=== PATIENT | male | born 1930 | race Caucasian/White ===

== ENCOUNTER 2018-05-17 17:21 | Emergency (ER) | payer MEDICARE, OTHER ==
[~2018-05-17] VITALS: Ht 172.7 cm; Wt 50.9 kg
[2018-05-17] MEDS ORDERED: albuterol 2.5 MG/3 ML nebule NEB ONE (17:55)
[2018-05-17 18:18] LABS: BASOPHILS % (AUTO) 0.3 % (0-1); EOSINOPHILS # (AUTO) 0.1 X10'3 (0-0.9); EOSINOPHILS % (AUTO) 0.9 % (0-6); HEMATOCRIT 38.3 % (42.0-52.0); HEMOGLOBIN 12.4 g/dl (14.0-17.9); LYMPHOCYTES # (AUTO) 1.4 X10'3 (1.1-4.8); LYMPHOCYTES % (AUTO) 22.7 % (21-51); MEAN CORPUSCULAR HGB CONC 32.5 % (33.0-36.5); MEAN CORPUSCULAR VOLUME 92.2 FL (78-98); MEAN PLATELET VOLUME 9.1 FL (7.4-10.4); MONOCYTES # (AUTO) 0.4 X10'3 (0-0.9); MONOCYTES % (AUTO) 7.1 % (2-12); NEUTROPHILS # (AUTO) 4.3 X10'3 (1.8-7.7); PLATELET COUNT 221 X10'3 (140-440); RED BLOOD COUNT 4.15 X10'6 (4.70-6.10); WHITE BLOOD COUNT 6.2 X10'3 (4.5-11.0)
[2018-05-17] MEDS ORDERED: morphine 4 MG/ML inj SYRINge IV ONE (18:30)
[2018-05-17 18:31] LABS: ALANINE AMINOTRANSFERASE 25 U/L (12-78); ALBUMIN 3.5 G/DL (3.4-5.0); ALBUMIN/GLOBULIN RATIO 1.1 (1.1-1.5); ALKALINE PHOSPHATASE 113 IU/L (46-116); ANION GAP 6 (8-16); ASPARTATE AMINO TRANSFERASE 15 U/L (10-37); BILIRUBIN,TOTAL 0.9 MG/DL (0.1-1.0); BLOOD UREA NITROGEN 17 MG/DL (7-18); BUN/CREATININE RATIO 32.1 (5.4-32.0); CALCIUM 8.5 MG/DL (8.5-10.1); CHLORIDE 102 MMOL/L (99-107); CREATININE 0.53 MG/DL (0.60-1.10); GLUCOSE 449 MG/DL (70-104); POTASSIUM 4.6 MMOL/L (3.5-5.1); SODIUM 138 MMOL/L (135-145); TOTAL CARBON DIOXIDE 30.2 MMOL/L (24-32); TOTAL PROTEIN 6.6 G/DL (6.4-8.2); eGFR > 90 ML/MIN
[2018-05-17 18:34] LABS: INR 1.1 INR; PARTIAL THROMBOPLASTIN TIME 23 SECONDS (22-32); PROTHROMBIN TIME 11.3 SECONDS (9.0-12.0)
[2018-05-17 18:40] LABS: MAGNESIUM 1.9 MG/DL (1.5-2.4)
[2018-05-17] MEDS ORDERED: normal saline 1000ML IV soln IVB ONE (19:00)
[2018-05-17] MEDS ORDERED: insulin regular, human 10 units/0.1 ml syringe SQ ONE (19:15)
[2018-05-17 19:31] LABS: CLARITY,URINE CLEAR (Clear); COLOR,URINE YELLOW (Yellow); GLUCOSE, URINE >=1000 mg/dl (Neg); KETONES,URINE TRACE mg/dl (Neg); LEUKOCYTE ESTERASE ,URINE NEGATIVE (Neg); NITRITES, URINE NEGATIVE (Neg); OCCULT BLOOD,URINE TRACE-INTACT (Neg); PH,URINE 5.5 (4.8-8.0); PROTEIN,URINE NEGATIVE (Neg); UROBILINOGEN,URINE 0.2 E.U/dL (0.2-1.0)
[2018-05-17 19:35] LABS: BACTERIA,URINE NONE SEEN /HPF (Neg); RBC,URINE 0-2 /HPF (0-2); SQUAMOUS EPITHELIAL CELL,UR FEW /LPF (FEW); UA COLLECTION TYPE CLN CATCH MIDSTREAM; WBC,URINE NONE SEEN /HPF (0-4)
[2018-05-17 20:35] VITALS: BP 141/87
== END 2018-05-17 20:37 | disposition home or self-care (01) ==
LOC: ER 17:21
DX: S42.291A Other displaced fracture of upper end of right humerus, initial encounter for closed fracture (principal); E11.65 Type 2 diabetes mellitus with hyperglycemia; E86.0 Dehydration; M54.2 Cervicalgia; I10 Essential (primary) hypertension; J44.9 Chronic obstructive pulmonary disease, unspecified; W18.30XA Fall on same level, unspecified, initial encounter; Y93.89 Activity, other specified; Y92.89 Other specified places as the place of occurrence of the external cause; Y99.8 Other external cause status
CPT/HCPCS: 29105; 36415; 70450; 71045; 72125; 73030; 80053; 81001; 83735; 83880; 84484; 85025; 85610; 85730; 93005; 94640; 94760; 96361; 96372; 96374; 99284; J1815; J2270; J7030

== ENCOUNTER 2018-05-27 13:17 | Outpatient (CLI) | payer MEDICARE, OTHER ==
[2018-05-27 13:13] VITALS: BP 119/65
== END 2018-05-27 14:16 | disposition home or self-care (01) ==
LOC: ORTHO 13:17
PROVIDERS: ATTEND Nurse Practitioner Family
DX: S42.291A Other displaced fracture of upper end of right humerus, initial encounter for closed fracture (principal); E11.9 Type 2 diabetes mellitus without complications; I10 Essential (primary) hypertension; J44.9 Chronic obstructive pulmonary disease, unspecified; F17.200 Nicotine dependence, unspecified, uncomplicated; W18.39XA Other fall on same level, initial encounter; Y93.89 Activity, other specified; Y92.098 Other place in other non-institutional residence as the place of occurrence of the external cause; Y99.8 Other external cause status
CPT/HCPCS: 99213

== ENCOUNTER 2018-06-23 13:51 | Outpatient (CLI) | payer MEDICARE, OTHER ==
[2018-06-23 13:59] VITALS: BP 136/81
== END 2018-06-23 14:38 | disposition home or self-care (01) ==
LOC: ORTHO 13:51
PROVIDERS: ATTEND Nurse Practitioner Family
DX: S42.214 Unspecified nondisplaced fracture of surgical neck of right humerus (principal); L89.010 Pressure ulcer of right elbow, unstageable; I10 Essential (primary) hypertension; E11.9 Type 2 diabetes mellitus without complications; J44.9 Chronic obstructive pulmonary disease, unspecified; F17.210 Nicotine dependence, cigarettes, uncomplicated; Z79.4 Long term (current) use of insulin; Z79.899 Other long term (current) drug therapy; W18.39XD Other fall on same level, subsequent encounter
CPT/HCPCS: 73030; 99213

== ENCOUNTER 2018-06-29 09:22 | Day surgery (SDC) | payer MEDICARE, OTHER ==
[2018-06-29] MEDS ORDERED: LIDOcaine/PRILOcaine 5gm cream TP ONE (09:55)
--- NOTE | 2018-06-29 11:00 | NUR ---
Patient ambulated independently from lobby accompanied by his son Jay and was admitted to outpatient wound care for physician visit with Erik Golden MD. Dressing removed, wound cleansed and Emla cream applied per order. Patient's medical history and current medications are reviewed with patient's son Jay. 1030 - blood glucose 320. Patient instructed that elevated blood sugars delay healing of the wound and can cause further complications including but not limited to amputation of toes or feet. [facility] class flyer given to vidhya Thompson and contacting them for assistance with patient's insulin dosing and blood glucose management is advised by RN. 1010-Dr. Golden at bedside accompanied by RN. Wound assessed, time out performed by MD/RN. Wound debrided as detailed in the physician progress/procedure note. Plan of care discussed with patient. Dressings placed per MD orders. Patient instructed on the signs and symptoms of infection and to call the Wound Center if any occur or to go to the ED if we are closed: Increased pain in wound Increase in drainage from the wound Redness in the skin surrounding the wound Bleeding from the wound Temperature of 101 or greater Patient instructed that the weight of their body puts a large amount of pressure on their wounds. This pressure keeps the new tissue from growing and inhibits new blood vessels from forming. Explained that, if they continue to bear weight on a body part that has a wound, the time it takes to heal the wound increases, the wound may get worse or the wound may not heal at all. Patient;s son Jay verbalized understanding of all discharge instructions and plan of care and patient ambulated independently out to [facility] with Jay and is in stable condition with no sign or symptom of distress at time of discharge.
[2018-06-29] MEDS ORDERED: AMLO5TAB PO (15:53)
[2018-06-29] MEDS ORDERED: HYDR-3195 PO (15:53)
[2018-06-29] MEDS ORDERED: LOSA100T57 PO (15:53)
[2018-06-29] MEDS ORDERED: PRED5TAB PO (15:53)
[2018-06-29] MEDS ORDERED: ACET-1084 (15:53)
[2018-06-29] MEDS ORDERED: MULT-1180 (15:53)
[2018-06-29] MEDS ORDERED: ALBU18HF2 INH (15:53)
[2018-06-29] MEDS ORDERED: ASPI-1265 PO (15:53)
[2018-06-29] MEDS ORDERED: INSU100I31 (15:53)
[2018-06-29] MEDS ORDERED: BUDE10.2 INH (15:53)
== END 2018-06-29 10:50 | disposition home or self-care (01) ==
LOC: WOUND CARE 09:22
PROVIDERS: ATTEND Surgery
DX: E11.622 Type 2 diabetes mellitus with other skin ulcer (principal); L89.894 Pressure ulcer of other site, stage 4; J44.9 Chronic obstructive pulmonary disease, unspecified; I10 Essential (primary) hypertension; F17.210 Nicotine dependence, cigarettes, uncomplicated; Z79.899 Other long term (current) drug therapy; Z79.4 Long term (current) use of insulin
CPT/HCPCS: 36416; 82948; A6021; A6206; A6212

== ENCOUNTER 2018-07-06 09:19 | Day surgery (SDC) | payer MEDICARE, OTHER ==
[~2018-07-06 09:19] MED LIST: ACET-1084; ALBU18HF2 INH; AMLO5TAB PO; ASPI-1265 PO; BUDE10.2 INH; HYDR-3195 PO; INSU100I31; LOSA100T57 PO; MULT-1180; PRED5TAB PO
[2018-07-06] MEDS ORDERED: LIDOcaine 2% 5ml jelly ONE (09:45)
--- NOTE | 2018-07-06 11:00 | NUR ---
Patient ambulated independently from [facility] accompanied by his son and was admitted to outpatient wound care for physician visit with Erik Golden MD. Dressing removed, wound cleansed and lidocaine applied per order. Patient assessed for changes in conditions, medications and medical history. 0951 - blood glucose 277. Patient instructed that elevated blood sugars delay healing of the wound and can cause further complications including but not limited to amputation of toes or feet. 1010 - Dr. Golden at bedside accompanied by RN. Wound assessed, time out performed by MD/RN. Wound debrided as detailed in the physician progress/procedure note. Plan of care discussed with patient. Dressings placed per MD orders. Patient instructed on the signs and symptoms of infection and to call the Wound Center if any occur or to go to the ED if we are closed: Increased pain in wound Increase in drainage from the wound Redness in the skin surrounding the wound Bleeding from the wound Temperature of 101 or greater Patient instructed that the weight of their body puts a large amount of pressure on their wounds. This pressure keeps the new tissue from growing and inhibits new blood vessels from forming. Explained that, if they continue to bear weight on a body part that has a wound, the time it takes to heal the wound increases, the wound may get worse or the wound may not heal at all. Patient and his son verbalized understanding of all discharge instructions and plan of care and patient ambulated independently out to [facility] accompanied by his son and is in stable condition with no sign or symptom of distress at time of discharge.
== END 2018-07-06 10:57 | disposition home or self-care (01) ==
LOC: WOUND CARE 09:19
PROVIDERS: ATTEND Surgery
DX: E11.622 Type 2 diabetes mellitus with other skin ulcer (principal); L89.894 Pressure ulcer of other site, stage 4; J44.9 Chronic obstructive pulmonary disease, unspecified; I10 Essential (primary) hypertension; F17.210 Nicotine dependence, cigarettes, uncomplicated; Z79.899 Other long term (current) drug therapy; Z79.4 Long term (current) use of insulin
CPT/HCPCS: 36416; 82948; 97597; A6209; A6206

== ENCOUNTER 2018-07-13 08:59 | Outpatient (CLI) | payer MEDICARE, OTHER ==
[2018-07-13 08:53] VITALS: BP 125/66
[~2018-07-13 08:59] MED LIST changes: -PRED5TAB PO
== END 2018-07-13 09:26 | disposition home or self-care (01) ==
LOC: ORTHO 08:59
PROVIDERS: ATTEND Nurse Practitioner Family
DX: S42.291G Other displaced fracture of upper end of right humerus, subsequent encounter for fracture with delayed healing (principal); L89.010 Pressure ulcer of right elbow, unstageable; I10 Essential (primary) hypertension; J44.9 Chronic obstructive pulmonary disease, unspecified; E11.9 Type 2 diabetes mellitus without complications; F17.210 Nicotine dependence, cigarettes, uncomplicated; Z79.82 Long term (current) use of aspirin; Z79.4 Long term (current) use of insulin; W18.39XD Other fall on same level, subsequent encounter
CPT/HCPCS: 73030; G0463

== ENCOUNTER 2018-07-13 09:35 | Day surgery (SDC) | payer MEDICARE, OTHER ==
[2018-07-13] MEDS ORDERED: LIDOcaine/PRILOcaine 5gm cream TP ONE (11:00)
--- NOTE | 2018-07-13 12:30 | NUR ---
Patient ambulated independently accompanied by his son from [facility] and was admitted to outpatient wound care for physician visit with Erik Golden MD. Dressing removed, wound cleansed and Emla cream applied per order. Patient assessed for changes in conditions, medications and medical history. 1130 - blood glucose 137. Patient instructed that elevated blood sugars delay healing of the wound and can cause further complications including but not limited to amputation of toes or feet. 1100 - Dr. Golden at bedside accompanied by RN. Wound assessed, time out performed by MD/RN. Wound debrided as detailed in the physician progress/procedure note. Plan of care discussed with patient. Dressings placed per MD orders. Patient instructed on the signs and symptoms of infection and to call the Wound Center if any occur or to go to the ED if we are closed: Increased pain in wound Increase in drainage from the wound Redness in the skin surrounding the wound Bleeding from the wound Temperature of 101 or greater Patient instructed that the weight of their body puts a large amount of pressure on their wounds. This pressure keeps the new tissue from growing and inhibits new blood vessels from forming. Explained that, if they continue to bear weight on a body part that has a wound, the time it takes to heal the wound increases, the wound may get worse or the wound may not heal at all. Patient and his son verbalized understanding of all discharge instructions and plan of care and patient ambulated independently out to [facility] accompanied by his son and is in stable condition with no sign or symptom of distress at time of discharge.
== END 2018-07-13 11:37 | disposition home or self-care (01) ==
LOC: WOUND CARE 09:35
PROVIDERS: ATTEND Surgery
DX: E11.622 Type 2 diabetes mellitus with other skin ulcer (principal); L89.894 Pressure ulcer of other site, stage 4; J44.9 Chronic obstructive pulmonary disease, unspecified; I10 Essential (primary) hypertension; F17.210 Nicotine dependence, cigarettes, uncomplicated; Z79.899 Other long term (current) drug therapy; Z79.4 Long term (current) use of insulin; Z79.82 Long term (current) use of aspirin
CPT/HCPCS: 36416; 82948; A6209; A6222; C5271; Q4102; A6446

== ENCOUNTER 2018-07-20 09:23 | Day surgery (SDC) | payer MEDICARE, OTHER ==
[2018-07-20] MEDS ORDERED: LIDOcaine/PRILOcaine 5gm cream TP ONE (10:02)
--- NOTE | 2018-07-20 12:48 | NUR ---
Patient ambulated independently from [facility] and was admitted to outpatient wound care for physician visit with Erik Golden MD. Dressing removed, wound cleansed and lidocaine applied per order. Patient assessed for changes in conditions, medications and medical history. Dr. Golden at bedside accompanied by RN. Wound assessed, time out performed by MD/RN. Wound debrided as detailed in the physician progress/procedure note. Plan of care discussed with patient. Dressings placed per MD orders. Patient instructed on the signs and symptoms of infection and to call the Wound Center if any occur or to go to the ED if we are closed: Increased pain in wound Increase in drainage from the wound Redness in the skin surrounding the wound Bleeding from the wound Temperature of 101 or greater Patient instructed that elevated blood sugars delay healing of the wound and can cause further complications including but not limited to amputation of toes or feet. Patient instructed that the weight of their body puts a large amount of pressure on their wounds. This pressure keeps the new tissue from growing and inhibits new blood vessels from forming. Explained that, if they continue to bear weight on a body part that has a wound, the time it takes to heal the wound increases, the wound may get worse or the wound may not heal at all. Patient verbalized understanding of all discharge instructions and plan of care and ambulated independently out to [facility] in stable condition with no sign or symptom of distress at time of discharge. Addendum: 07/20/18 at 1250 by Stephanie Prasad RN Amended: Links added.
== END 2018-07-20 11:33 | disposition home or self-care (01) ==
LOC: WOUND CARE 09:23
PROVIDERS: ATTEND Surgery
DX: E11.622 Type 2 diabetes mellitus with other skin ulcer (principal); L89.894 Pressure ulcer of other site, stage 4; E11.65 Type 2 diabetes mellitus with hyperglycemia; J44.9 Chronic obstructive pulmonary disease, unspecified; I10 Essential (primary) hypertension; F17.210 Nicotine dependence, cigarettes, uncomplicated; Z79.899 Other long term (current) drug therapy; Z79.4 Long term (current) use of insulin; Z79.82 Long term (current) use of aspirin
CPT/HCPCS: 36416; 82948; C5271; Q4102; A6206; A6250; A6446

== ENCOUNTER 2018-07-27 09:15 | Day surgery (SDC) | payer MEDICARE, OTHER ==
[2018-07-27] MEDS ORDERED: LIDOcaine 2% 5ml jelly ONE (10:58)
--- NOTE | 2018-07-27 14:59 | NUR ---
Patient ambulated independently from [facility] accompanied by son. Patient admitted to outpatient wound care for physician visit with Erik Golden MD. Dressing removed, wound cleansed and lidocaine applied per order. Patient assessed for changes in conditions, medications and medical history. Dr. Golden at bedside accompanied by RN. Wound assessed, time out performed by MD/RN. Wound debrided as detailed in the physician progress/procedure note. Plan of care discussed with patient. Dressings placed per MD orders. Patient instructed on the signs and symptoms of infection and to call the Wound Center if any occur or to go to the ED if we are closed: Increased pain in wound Increase in drainage from the wound Redness in the skin surrounding the wound Bleeding from the wound Temperature of 101 or greater Patient instructed that elevated blood sugars delay healing of the wound and can cause further complications including but not limited to amputation of toes or feet. Patient instructed that the weight of their body puts a large amount of pressure on their wounds. This pressure keeps the new tissue from growing and inhibits new blood vessels from forming. Explained that, if they continue to bear weight on a body part that has a wound, the time it takes to heal the wound increases, the wound may get worse or the wound may not heal at all. Patient verbalized understanding of all discharge instructions and plan of care and ambulated independently out to [facility] in stable condition with no sign or symptom of distress at time of discharge. Addendum: 07/27/18 at 1502 by Stephanie rPasad RN Amended: Links added.
== END 2018-07-27 12:04 | disposition home or self-care (01) ==
LOC: WOUND CARE 09:15
PROVIDERS: ATTEND Surgery
DX: E11.622 Type 2 diabetes mellitus with other skin ulcer (principal); L89.894 Pressure ulcer of other site, stage 4; E11.65 Type 2 diabetes mellitus with hyperglycemia; J44.9 Chronic obstructive pulmonary disease, unspecified; I10 Essential (primary) hypertension; F17.210 Nicotine dependence, cigarettes, uncomplicated; Z79.899 Other long term (current) drug therapy; Z79.4 Long term (current) use of insulin; Z79.82 Long term (current) use of aspirin
CPT/HCPCS: 36416; 82948; A6209; A6222; C5271; Q4102

== ENCOUNTER 2018-08-03 12:59 | Outpatient (CLI) | payer MEDICARE, OTHER ==
[2018-08-03 13:00] VITALS: BP 152/99
== END 2018-08-03 13:50 | disposition home or self-care (01) ==
LOC: ORTHO 12:59
PROVIDERS: ATTEND Nurse Practitioner Family
DX: S42.291G Other displaced fracture of upper end of right humerus, subsequent encounter for fracture with delayed healing (principal); F17.210 Nicotine dependence, cigarettes, uncomplicated; I10 Essential (primary) hypertension; E11.9 Type 2 diabetes mellitus without complications; J44.9 Chronic obstructive pulmonary disease, unspecified; Z79.82 Long term (current) use of aspirin; Z79.4 Long term (current) use of insulin; W18.30XD Fall on same level, unspecified, subsequent encounter
CPT/HCPCS: 73030

== ENCOUNTER 2018-08-05 08:53 | Outpatient (CLI) | payer MEDICARE, OTHER ==
[2018-08-05] MEDS ORDERED: LIDOcaine/PRILOcaine 5gm cream TP ONE (09:46)
--- NOTE | 2018-08-05 14:32 | NUR ---
Patient ambulated independently from [facility] accompanied by son. Patient admitted to outpatient wound care for physician visit with Erik Golden MD. Dressing removed, wound cleansed and lidocaine applied per order. Patient assessed for changes in conditions, medications and medical history. Dr. Golden at bedside accompanied by RN. Wound assessed, time out performed by MD/RN. Wound debrided as detailed in the physician progress/procedure note. Plan of care discussed with patient. Dressings placed per MD orders. Patient instructed on the signs and symptoms of infection and to call the Wound Center if any occur or to go to the ED if we are closed: Increased pain in wound Increase in drainage from the wound Redness in the skin surrounding the wound Bleeding from the wound Temperature of 101 or greater Patient instructed that elevated blood sugars delay healing of the wound and can cause further complications including but not limited to amputation of toes or feet. Patient instructed that the weight of their body puts a large amount of pressure on their wounds. This pressure keeps the new tissue from growing and inhibits new blood vessels from forming. Explained that, if they continue to bear weight on a body part that has a wound, the time it takes to heal the wound increases, the wound may get worse or the wound may not heal at all. Patient verbalized understanding of all discharge instructions and plan of care and ambulated independently out to [facility] in stable condition with no sign or symptom of distress at time of discharge. Addendum: 08/05/18 at 1433 by Stephanie Prasad RN Amended: Links added.
== END 2018-08-05 10:27 | disposition home or self-care (01) ==
LOC: WOUND CARE 08:53 → EDSTATUS 09:00 → WOUND CARE 10:27
PROVIDERS: ATTEND Surgery
DX: E11.622 Type 2 diabetes mellitus with other skin ulcer (principal); L89.894 Pressure ulcer of other site, stage 4; E11.65 Type 2 diabetes mellitus with hyperglycemia; J44.9 Chronic obstructive pulmonary disease, unspecified; I10 Essential (primary) hypertension; F17.210 Nicotine dependence, cigarettes, uncomplicated; Z79.899 Other long term (current) drug therapy; Z79.4 Long term (current) use of insulin; Z79.82 Long term (current) use of aspirin
CPT/HCPCS: 36416; 82948; A6209; A6222; G0463; A6021

== ENCOUNTER 2018-08-19 08:59 | Day surgery (SDC) | payer MEDICARE, OTHER ==
[2018-08-19] MEDS ORDERED: LIDOcaine/PRILOcaine 5gm cream TP ONE (09:29)
--- NOTE | 2018-08-19 11:00 | NUR ---
Patient ambulated independently from [facility] accompanied by son Jay and was admitted to outpatient wound care for physician visit with Erik Golden MD. Dressing removed, wound cleansed and Emla cream applied per order. Patient assessed for changes in conditions, medications and medical history. 0911 - blood sugar 218. Patient instructed that elevated blood sugars delay healing of the wound and can cause further complications including but not limited to amputation of toes or feet. 1015 - Dr. Golden at bedside accompanied by RN. Wound assessed, time out performed by MD/RN. Wound debrided as detailed in the physician progress/procedure note. Plan of care discussed with patient. Dressings placed per MD orders. Patient instructed on the signs and symptoms of infection and to call the Wound Center if any occur or to go to the ED if we are closed: Increased pain in wound Increase in drainage from the wound Redness in the skin surrounding the wound Bleeding from the wound Temperature of 101 or greater Patient instructed that the weight of their body puts a large amount of pressure on their wounds. This pressure keeps the new tissue from growing and inhibits new blood vessels from forming. Explained that, if they continue to bear weight on a body part that has a wound, the time it takes to heal the wound increases, the wound may get worse or the wound may not heal at all. Patient's son verbalized understanding of all discharge instructions and plan of care and patient ambulated independently accompanied by his son out to [facility] in stable condition with no sign or symptom of distress at time of discharge.
== END 2018-08-19 10:39 | disposition home or self-care (01) ==
LOC: WOUND CARE 08:59
PROVIDERS: ATTEND Surgery
DX: E11.622 Type 2 diabetes mellitus with other skin ulcer (principal); L89.894 Pressure ulcer of other site, stage 4; E11.65 Type 2 diabetes mellitus with hyperglycemia; J44.9 Chronic obstructive pulmonary disease, unspecified; I10 Essential (primary) hypertension; F17.210 Nicotine dependence, cigarettes, uncomplicated; Z79.899 Other long term (current) drug therapy; Z79.4 Long term (current) use of insulin; Z79.82 Long term (current) use of aspirin
CPT/HCPCS: 36416; 82948; 97597; A6209; A6021; A6206; A6212; A6446

== ENCOUNTER 2018-08-24 13:44 | Outpatient (CLI) | payer MEDICARE, OTHER ==
[2018-08-24 13:33] VITALS: BP 150/92
== END 2018-08-24 14:17 | disposition home or self-care (01) ==
LOC: ORTHO 13:44
PROVIDERS: ATTEND Nurse Practitioner Family
DX: S42.214 Unspecified nondisplaced fracture of surgical neck of right humerus (principal); E11.9 Type 2 diabetes mellitus without complications; I10 Essential (primary) hypertension; J44.9 Chronic obstructive pulmonary disease, unspecified; F17.210 Nicotine dependence, cigarettes, uncomplicated; X58.XXXD Exposure to other specified factors, subsequent encounter
CPT/HCPCS: 73030; 99213

== ENCOUNTER 2018-08-26 09:41 | Outpatient (CLI) | payer MEDICARE, OTHER ==
[2018-08-26] MEDS ORDERED: mupirocin 2% ointment 22GM ONE (10:33)
--- NOTE | 2018-08-26 11:10 | NUR ---
Patient ambulated independently from [facility] accompanied by son and was admitted to outpatient wound care for physician visit. Dressings removed, wound cleansed. Patient assessment completed with review of patient's medical history and current medications. Blood Glucose= 153 @ 0955 1025-Dr. Golden at bedside accompanied by RN. Wound assessed, time-out performed by MD/RN. Wound debrided as detailed in the physician progress/procedure note. Plan of care discussed with patient. Dressings placed per MD orders. Patient instructed on the signs and symptoms of infection and to call the Wound Center if any occur or to go to the ED if we are closed: Increased pain in the wound Increase in drainage from the wound Redness in the skin surrounding the wound Bleeding from the wound Temperature of 101F or greater Patient instructed that the weight of their body puts a large amount of pressure on their wounds. This pressure keeps the new tissue from growing and inhibits new blood vessels from forming. Explained that, if they continue to bear weight on a body part that has a wound, the time it takes to heal the wound increases, the wound may get worse, or the wound may not heal at all. Patient verbalized understanding of all discharge instructions and plan of care. Patient ambulated independently out to [facility] in stable condition with no signs or symptoms of distress at time of discharge.
== END 2018-08-26 10:42 | disposition home or self-care (01) ==
LOC: WOUND CARE 09:41
PROVIDERS: ATTEND Surgery
DX: E11.622 Type 2 diabetes mellitus with other skin ulcer (principal); L89.894 Pressure ulcer of other site, stage 4; E11.65 Type 2 diabetes mellitus with hyperglycemia; J44.9 Chronic obstructive pulmonary disease, unspecified; I10 Essential (primary) hypertension; F17.210 Nicotine dependence, cigarettes, uncomplicated; Z79.899 Other long term (current) drug therapy; Z79.4 Long term (current) use of insulin; Z79.82 Long term (current) use of aspirin
CPT/HCPCS: 36416; 82948; G0463; A6212

== ENCOUNTER 2018-09-14 14:13 | Inpatient (IN) | payer MEDICARE, OTHER | END 2018-09-22 17:50 | disposition home or self-care (01) | LOC: ER 14:13 → ED HOLD 17:04 → SUR 3N 23:47 | DX: J69.0 Pneumonitis due to inhalation of food and vomit (principal); J96.00 Acute respiratory failure, unspecified whether with hypoxia or hypercapnia; G93.41 Metabolic encephalopathy; K86.1 Other chronic pancreatitis; E11.649 Type 2 diabetes mellitus with hypoglycemia without coma; J44.9 Chronic obstructive pulmonary disease, unspecified ==